=== PATIENT | female | born 1945 | race Caucasian/White ===

== ENCOUNTER 2020-05-14 14:00 | Outpatient (RCR) | payer MEDICARE, SELFPAY ==
--- NOTE | 2020-03-26 12:31 | MHC.PT.EP ---
[facility] [place] [facility] [place] [facility] [place] Office [address] [place]ul [place] [address] [phone] F: [phone] F: [phone] F: [phone] F: [phone] Physical Therapy Plan of Care Date of Evaluation: 03/25/20 Date of Surgery: Diagnosis: Right knee pain and bilateral hips Assessment: Pt is a 75 y/o R hand dominant female, (PMH OSTEOPOROSIS, HIGH CHOLESTEROL, R MENISCAL TEAR) referred to PT for treatment of right knee pain and bilateral hip pain, referred to therapy by PCP Dr. Gr with date of referral 02/05/2020. Pt was seen for eval on 03/25/2020, exhibiting decreased AROM of bilateral hips, verbalizes presence of R knee and bilateral anterior hip pain with activity of getting in/out of bed. Upon assessment, pt exhibits weakness of proximal hip>medial quadriceps of the R LE, weakness of R hip abd and decreased strength of bilateral hip extensors. She is currently unable to perform a SLR and has asymmetrical bridge with weakness greater on R. She has been physically lifting her thigh to get in and out of bed and has verbalized difficulty walking prolonged distances secondary to her sx. She also mentioned ongoing L shoulder pain (hx fatty tumor R shoulder) and was advised to trial ice for R shoulder as well as for R hip/R knee (ice pack over clothing inside of a pillowcase x 10-15 minutes prn pain sx). She would benefit from receiving skilled PT services at initial recommended frequency of 2x/week to maximize strength, mobility, and HEP instruction, however due to $40 copayment, pt and therapist opted for plan to attend therapy with frequency of 1x/weekly. Pt was issued written HEP sheets at time of eval to include: posterior pelvic tilt for core stab, hookl-mariluz bridge, SL clamshell, L LE SLR, R LE SAQ, and as long as pain-free bilateral LAQ with good carryover. She was instructed to bring in her personal cane next session to trial ambulation with and adjust height for her. Frequency and Duration: The patient will be seen 1x/week x 4-6 weeks Short Term Goals: 1. Pt will demonstrate good strength of quadriceps as evidence by completion of SLR with good eccentric control. 2. Pt will demonstrate mini functional squat with good hip hinge 3:3 trials. 3. Pt will express 25% reduction in knee/hip pain during ADLs/IADLS. 4. Pt will initiate low impact exercise program. 5. Demonstrate symmetrical bridge in hooklying. Grade Teacher Goals: 1. 50% reduction in knee/hip pain during ADLS/IADLS. 2. Strength hip ext 4+/5 B. 3. Strength hip abd 4+/5 B. 4. Pt will enter/exit the bed without having to physically lift her R thigh with her hands. 5. I HEP. Treatment Plan: Modalities to reduce pain, spasms and effusion. Manual therapy to restore motion and function. Therapeutic exercise to improve strength and flexibility. Neuromuscular re-education for posture and balance. Therapeutic activities to return to functional activities of daily living. Please sign and return to therapist. Thank you for your referral.
== END 2020-05-30 09:57 | disposition other institution (70) ==
LOC: HO.PTWFD 14:00
PROVIDERS: Visit Provider Family Medicine
DX: M25.551 Pain in right hip (principal); M25.552 Pain in left hip; M25.561 Pain in right knee
CPT/HCPCS: 97110; 97112; 97140; 97162; 97535